=== PATIENT | male | born 1960 | race Caucasian/White ===

== ENCOUNTER 2023-01-29 22:58 | Outpatient (CLI) | payer BC, SELFPAY | END 2023-01-29 22:59 | disposition home or self-care (01) | LOC: AMB 01-30 12:16 | PROVIDERS: PCP Family Medicine; Visit Provider Emergency Medicine Emergency Medical Services | DX: R07.89 Other chest pain (principal) | CPT/HCPCS: A0425; A0427 ==

== ENCOUNTER 2023-01-29 23:31 | Emergency (ER) | payer BC, SELFPAY ==
[2023-01-29 23:34] VITALS: BP 103/58; PULSE 61; RESP 16; TEMP 36.9; O2SAT 97; BMI 22.5
--- NOTE | 2023-01-29 23:52 | CRLHL7_ITS ---
For Patients: As a result of the Cures Act, medical imaging exams and procedure reports are released immediately into your electronic medical record. You may view this report before your referring provider. If you have questions, please contact your health care provider. INDICATION: Chest pain. TECHNIQUE: Chest radiographs, two views. COMPARISON: None. FINDINGS: Lines/Tubes/Devices: None. Mediastinum: Normal cardiac silhouette. Lungs: No focal consolidation. Pleura: No pleural effusions or pneumothorax. Bones: No acute osseous abnormalities. Upper Abdomen: Unremarkable. IMPRESSION: No acute cardiopulmonary process. Dictated by Mac Rosas MD @ 01/30/2023 12:18:07 AM (Electronically Signed)
--- NOTE | 2023-01-30 00:07 | ED.CHESTPAIN ---
HPI - Chest Pain General Chief Complaint: Chest Pain Stated Complaint: Chest Pain Time Seen by Provider: 01/30/23 00:07 Source: patient and EMS Mode of arrival: EMS Limitations: no limitations History of Present Illness HPI narrative: 62-year-old male with no prior cardiac disease presents to the emergency department about 90 minutes after onset of vague left anterior chest discomfort. It started about 15-30 minutes after he finished exercising but had no exertional or exercise symptoms tonight. Not accompanied by any radiation, shortness of breath, dizziness or other unusual symptoms. No palpitations. No history of arrhythmia or history of coronary artery disease. He is a nonsmoker but he does have a history of treated hyperlipidemia. No hypertension. No recent stress testing. He spoke with his insurance carrier through the nurse triage line and they recommended evaluation. Pain is achy in nature, does not radiate, no waxing or waning, no exacerbating or alleviating symptoms. Did not try any home treatments prior to coming to ED. No prior history of similar symptoms. He received his COVID booster vaccine yesterday morning. He believes this was his 4th dose. He also received the flu shot at that time. He suspects that the vaccines are correlated with his symptoms. He has not previously had any significant adverse effects to the COVID vaccine. Past medical history notable for hyperlipidemia and insomnia. Home meds are trazodone and simvastatin. Socially is a nonsmoker with no pertinent cardiac history. Family history is notable for heart disease in his father in his 60s and 80s. No one with significant premature coronary artery disease. ROS is notable for the chest symptoms as above only, otherwise denies times 12 systems. Related Data Allergies Allergy/AdvReac Type Severity Reaction Status Date / Time No Known Drug Allergies Allergy Verified 01/29/23 23:39 Exam Const Vital Signs, click to edit/add: Vital Signs - 24 hr 01/29/23 23:34 Temperature 98.4 F Pulse Rate [Right Pulse Oximeter] 61 Respiratory Rate 16 Blood Pressure [Right Upper Arm] 103/58 L Pulse Oximetry 97 Oxygen Delivery Method Room Air Documenting provider has reviewed patient's vital signs: yes Common normals: no apparent distress General appearance: cooperative, comfortable and well kempt [facility] Common normals: normocephalic Head and scalp: normocephalic Face and sinus: normal facial exam Mouth: oral and palatal mucosa normal Throat: posterior oropharynx normal Eye General eye: normal appearance of both eyes Neck & C-Spine General: normal visual inspection Resp Common normals: normal respiratory effort, no use of accessory muscles and clear to auscultation bilaterally Effort & inspection: able to speak in complete sentences Auscultation: clear to auscultation bilaterally Cardio Common normals: regular rate, regular rhythm, S1 normal heart sound, S2 normal heart sound and no murmurs Rate: regular rate Rhythm: regular rhythm Heart sounds: S1 normal and S2 normal GI Common normals: Normal to inspection, nondistended, normoactive bowel sounds present, soft to palpation, non-tender, no hepatosplenomegaly and no masses Palpation: soft and no hepatosplenomegaly Extremity Common normals: no pedal edema Neuro Speech: speech normal Motor exam: no tremor noted and no movement abnormalities noted Psych Appearance: well kempt Activity/motor behavior: appropriate eye contact Mood and affect: euthymic mood Insight: insight good Judgement: judgment good Skin Common normals: no rashes or lesions noted General skin exam: no rashes or lesions noted Course Course ED Course: Differential diagnosis includes arrhythmia, acute coronary syndrome, pulmonary embolism, GERD, musculoskeletal etiology, pneumonia, asthma, among others. EKG will be performed, serial cardiac enzymes, chest x-ray. He did not have any improvement with nitroglycerin given by the EMS team. Await findings. Reevaluation(s) Time of Reevaluation #1: 01:49 Reevaluation #1: Counseled patient on initial normal labs and EKG. Awaiting follow-up troponin, suspect this will also be normal. If so, patient will be discharged home with instructions on Tylenol, ibuprofen and watchful waiting. Following up with primary care provider if symptoms are persistent for cardiac stress testing and or further workup. Alarm symptoms reviewed, especially exertional type symptoms that would warrant repeat ED visit. He verbalized understanding and agreement. Vital Signs Vital signs: Initial Vital Signs Temperature 98.4 F 01/29/23 23:34 Temperature Source Temporal Artery Scan 01/29/23 23:34 Pulse Rate 61 01/29/23 23:34 Pulse Rhythm Regular 01/29/23 23:34 Pulse Strength 3+ Normal 01/29/23 23:34 Respiratory Rate 16 01/29/23 23:34 Respiratory Effort Normal 01/29/23 23:34 Respiratory Depth Normal 01/29/23 23:34 Respiratory Pattern Normal 01/29/23 23:34 Blood Pressure 103/58 L 01/29/23 23:34 Blood Pressure Mean 73 01/29/23 23:34 Blood Pressure Position Supine 01/29/23 23:34 Pulse Oximetry 97 01/29/23 23:34 Oxygen Delivery Method Room Air 01/29/23 23:34 Vital Signs Temperature 98.4 F 01/29/23 23:34 Pulse Rate 61 01/29/23 23:34 Respiratory Rate 16 01/29/23 23:34 Blood Pressure 103/58 L 01/29/23 23:34 Pulse Oximetry 97 01/29/23 23:34 Oxygen Delivery Method Room Air 01/29/23 23:34 Temperature 98.4 F 01/29/23 23:34 Pulse Rate 61 01/29/23 23:34 Respiratory Rate 16 01/29/23 23:34 Blood Pressure 103/58 L 01/29/23 23:34 Pulse Oximetry 97 01/29/23 23:34 Oxygen Delivery Method Room Air 01/29/23 23:34 MDM - Chest Pain Lab Data Attestation: I reviewed the patient's lab results. Labs: Lab Results 01/30/23 Range/Units 00:00 WBC 6.68 (4.50-11.00) K/uL RBC 4.03 L (4.30-5.90) m/uL Hgb 13.0 L (13.5-17.5) gm/dL Hct 39.2 (37.0-53.0) % MCV 97 (80-100) fL MCH 32 (26-34) pg MCHC 33 (32-36) gm/dL RDW Coeff of Chata 12.6 (11.5-15.5) % Plt Count 169 (140-440) K/uL Neut % (Auto) 59.1 (42.0-72.0) % Lymph % (Auto) 26.9 (20-44) % Meigs % (Auto) 12.6 H (0.0-11.0) % Eos % (Auto) 1.0 (0.0-7.0) % Baso % (Auto) 0.4 (0.0-3.0) % Neut # (Auto) 3.94 (1.7-7.0) K/uL Lymph # (Auto) 1.80 (0.90-2.90) K/uL Meigs # (Auto) 0.80 (0.00-0.90) K/UL Eos # (Auto) 0.07 (0.00-0.50) K/uL Baso # (Auto) 0.03 (0.00-0.30) K/uL Abs Immat Gran (auto) 0.00 (0.00-0.30) K/uL Imm/Tot Granulo (auto) 0.0 % D-Dimer Quant (PE/DVT) < 0.27 (0.00-0.50) ug/ml Sodium 142 (135-149) mmol/L Potassium 3.8 (3.6-5.1) mmol/L Chloride 103 (96-114) mmol/L Carbon Dioxide 30 (20-32) mmol/L Anion Gap 9 (7-15) mEq/L BUN 19 (7-30) mg/dL Creatinine 0.8 (0.5-1.5) mg/dL Estimated Creat Clear 71.79 Estimated GFR 99 ml/min Glucose 69 (60-115) mg/dL Lactate 0.9 (0.5-1.9) mmol/L Calcium 9.0 (8.4-10.6) mg/dL Total Bilirubin 0.6 (0.1-1.5) mg/dL AST 38 H (12-35) U/L ALT 25 (4-50) U/L Alkaline Phosphatase 65 (40-150) U/L Troponin I < 0.01 L (0.01-0.04) ng/mL C-Reactive Protein < 0.5 L (0.5-1.0) mg/dL NT-Pro-B Natriuret Pep 245 pg/mL Total Protein 6.4 (6.0-8.3) g/dL Albumin 3.8 (3.3-5.0) g/dL Imaging Data Chest x-ray: Attestation: I have reviewed the pertinent imaging results. My impression: Normal chest x-ray. No cardiomegaly, effusions or infiltrates Radiologist's impression: IMPRESSION: No acute cardiopulmonary process. ECG Data Attestation: I personally reviewed and interpreted this ECG as follows: ECG interpretation date: 01/30/23 Prior ECG tracings: not available for review Interpretation: Mild sinus bradycardia with a rate of 57. Significant ST or T-wave abnormalities. Good R-wave progression, no LVH. No ischemia. Normal EKG. Discharge Plan Discharge Clinical Impression: Non-cardiac chest pain Patient Disposition: Home, Self-Care Condition: Stable Instructions: Noncardiac Chest Pain (ED) Additional Instructions: As we discussed, there are thankfully no signs of complications with your heart, blood clots, pneumonia or any other emergent condition tonight. I suspect that your chest pain is secondary to either increased stomach acid from the vaccine or from inflammation of the joint where the ribs meet the sternum which is unfortunately also common after vaccines. It is still safe for you to receive vaccines, as this is not an allergic reaction, just an unpleasant side effect. It is safe for you to resume all typical activities including your typical exercise regimen. Your symptoms should improve within the next few days. If you have persistent symptoms, especially on exertion or with exercise, I recommend making a follow-up appointment with her primary care doctor to arrange a cardiac stress test. Activity Level: No Restrictions Discharge Diet: Regular Follow Up/Referrals: Kristian Howe MD [Primary Care Provider] - Stand Alone Forms: [employer] Info Instructions
[2023-01-30 00:14] LABS: Basophils Absolute Auto 0.03 K/uL (0.00-0.30); Basophils Percent Auto 0.4 % (0.0-3.0); Eosinophils Absolute Auto 0.07 K/uL (0.00-0.50); Hematocrit 39.2 % (37.0-53.0); Lymphocytes Percent Auto 26.9 % (20-44); Mean Corpuscular HGB Conc 33 gm/dL (32-36); Mean Corpuscular Hemoglobin 32 pg (26-34); Mean Corpuscular Volume 97 fL (80-100); Monocytes Percent Auto 12.6 % (0.0-11.0); Neutrophils Absolute Auto 3.94 K/uL (1.7-7.0); Neutrophils Percent Auto 59.1 % (42.0-72.0); Platelet Count* 169 K/uL (140-440); RDW Coefficient of Variation % 12.6 % (11.5-15.5); Red Blood Count 4.03 m/uL (4.30-5.90); White Blood Count* 6.68 K/uL (4.50-11.00)
[2023-01-30 00:19] LABS: Slide Review Reflex No
[2023-01-30 00:20] LABS: Lactate* 0.9 mmol/L (0.5-1.9)
[2023-01-30 00:29] LABS: D Dimer Quantitative* < 0.27 ug/ml (0.00-0.50)
[2023-01-30 00:50] LABS: Chloride* 103 mmol/L (96-114)
[2023-01-30 00:51] LABS: Albumin* 3.8 g/dL (3.3-5.0); Potassium* 3.8 mmol/L (3.6-5.1); Sodium* 142 mmol/L (135-149)
[2023-01-30 00:54] LABS: Alanine Aminotransferase* 25 U/L (4-50); Alkaline Phosphatase* 65 U/L (40-150); Anion Gap 9 mEq/L (7-15); Aspartate Amino Transferase* 38 U/L (12-35); Bilirubin Total* 0.6 mg/dL (0.1-1.5); Blood Urea Nitrogen* 19 mg/dL (7-30); Carbon Dioxide* 30 mmol/L (20-32); Creatinine* 0.8 mg/dL (0.5-1.5); Est. Creatinine Clearance* 71.79; Estimated Glomerular Filt Rate 99 ml/min; Glucose* 69 mg/dL (60-115); Total Protein* 6.4 g/dL (6.0-8.3)
[2023-01-30 01:01] LABS: C Reactive Protein* < 0.5 mg/dL (0.5-1.0)
[2023-01-30 01:05] LABS: NT Pro B Type NatriureticPept* 245 pg/mL
[2023-01-30 01:11] LABS: Troponin I* < 0.01 ng/mL (0.01-0.04)
[2023-01-30 02:05] VITALS: BP 106/66; PULSE 56; RESP 16; O2SAT 98
== END 2023-01-30 02:15 | disposition home or self-care (01) ==
PROVIDERS: Emergency Provider Family Medicine; PCP Family Medicine
DX: R07.89 Other chest pain (principal)
CPT/HCPCS: 36415; 71046; 80053; 83605; 83880; 84484; 85025; 85379; 86140; 93005; 99284; 99285